=== PATIENT | female | born 1960 | race Caucasian/White ===

== ENCOUNTER 2017-07-28 18:48 | Emergency (ER) | payer MEDICARE, OTHER ==
[~2017-07-28] VITALS: Ht 162.6 cm; Wt 68.0 kg
[2017-07-28 18:52] VITALS: BP 133/85
[2017-07-28] MEDS ORDERED: IBUPROFEN 200 MG TABLET ONE (19:23)
[2017-07-28] MEDS ORDERED: IBUPROFEN 200 MG TABLET PO ONE (19:30)
== END 2017-07-28 20:24 | disposition home or self-care (01) ==
LOC: ED 20:15
DX: M25.561 Pain in right knee (principal)
CPT/HCPCS: 99284

== ENCOUNTER 2017-10-05 06:56 | Emergency (ER) | payer MEDICARE ==
[~2017-10-05] VITALS: Ht 162.6 cm; Wt 66.0 kg
[2017-10-05] MEDS ORDERED: SODIUM CHLORIDE FLUSH 10ML SYR IVF ONE (07:00)
[2017-10-05] MEDS ORDERED: METOCLOPRAMIDE 5 MG/ML, 2ML IVPush ONE (07:00)
[2017-10-05] MEDS ORDERED: SODIUM CHLORIDE 0.9% 1,000ML IVBOLUS ONE (07:00)
[2017-10-05] MEDS ORDERED: DIPHENHYDRAMINE 50 MG/ML, 1ML IVPush ONE (07:00)
[2017-10-05] MEDS ORDERED: DEXAMETHASONE 4 MG/ML, 1ML IVPush ONE (07:00)
[2017-10-05] MEDS ORDERED: TIZA2TAB PO (07:11)
[2017-10-05] MEDS ORDERED: TIZA4CAP PO (07:11)
[2017-10-05] MEDS ORDERED: OXYC-307 PO (07:11)
[2017-10-05] MEDS ORDERED: MIRT15TA4 PO (07:11)
[2017-10-05] MEDS ORDERED: PRESTIQUE PO (07:11)
[2017-10-05] MEDS ORDERED: MORPHINE PO (07:11)
[2017-10-05] MEDS ORDERED: METOCLOPRAMIDE 5 MG/ML, 2ML ONE (07:16)
[2017-10-05] MEDS ORDERED: DIPHENHYDRAMINE 50 MG/ML, 1ML ONE (07:16)
[2017-10-05] MEDS ORDERED: DEXAMETHASONE 4 MG/ML, 5ML ONE (07:16)
[2017-10-05 07:25] LABS: BASOPHILS # (AUTO) 0.04 x10^3/uL (0-0.1); BASOPHILS % (AUTO) 0 % (0-1); EOSINOPHILS # (AUTO) 0.18 x10^3/uL (0-0.4); EOSINOPHILS % (AUTO) 2 % (1-7); LYMPHOCYTES # (AUTO) 2.29 x10^3/uL (1-3.4); LYMPHOCYTES % (AUTO) 21 % (22-44); MD NO; MEAN CORPUSCULAR HEMOGLOBIN 31.6 pg (27.0-34.8); MEAN CORPUSCULAR HGB CONC 33.3 g/dL (32.4-35.8); MEAN CORPUSCULAR VOLUME 94.7 fL (80-100); MEAN PLATELET VOLUME 9.5 fL (7.4-10.4); MONOCYTES # (AUTO) 0.47 x10^3/uL (0.2-0.8); MONOCYTES % (AUTO) 4 % (2-9); NEUTROPHILS # (AUTO) 7.73 x10^3/uL (1.8-6.8); NEUTROPHILS % (AUTO) 72 % (42-75); PLATELET COUNT 204 x10^3/uL (130-400); RED BLOOD COUNT 4.78 x10^6/uL (3.82-5.3); RED CELL DISTRIBUTION WIDTH 12.8 % (9.6-15.2)
[2017-10-05 07:33] LABS: ALBUMIN 3.9 g/dL (3.4-5.0); ANION GAP 9 mmol/L (5-15); CALCIUM 9.4 mg/dL (8.5-10.1); CHLORIDE 109 mmol/L (98-107)
[2017-10-05 09:12] VITALS: BP 116/68
== END 2017-10-05 09:14 | disposition home or self-care (01) ==
LOC: ED 07:55
DX: G43.C0 Periodic headache syndromes in child or adult, not intractable (principal)
CPT/HCPCS: 36415; 70450; 80048; 82040; 85025; 96374; 96375; 99285; J1100; J1200; J2765; J7030

== ENCOUNTER 2017-10-08 22:15 | Emergency (ER) | payer MEDICARE ==
[~2017-10-08] VITALS: Ht 162.6 cm; Wt 65.9 kg
[~2017-10-08 22:15] MED LIST: MIRT15TA4 PO; MORPHINE PO; OXYC-307 PO; PRESTIQUE PO; TIZA2TAB PO; TIZA4CAP PO
[2017-10-08] MEDS ORDERED: PROCHLORPERAZINE 5 MG/ML, 2ML IVPush ONE (22:30)
[2017-10-08] MEDS ORDERED: MAGNESIUM SULFATE PMX 2GM/50ML 50 ML IV ONE (22:30)
[2017-10-08] MEDS ORDERED: SODIUM CHLORIDE 0.9% 1,000ML IVBOLUS ONE (22:30)
[2017-10-08] MEDS ORDERED: PROCHLORPERAZINE 5 MG/ML, 2ML ONE (23:01)
[2017-10-09 00:13] VITALS: BP 151/88
== END 2017-10-09 00:16 | disposition home or self-care (01) ==
LOC: ED 22:55
DX: R51 Headache (principal); Z88.0 Allergy status to penicillin; Z88.1 Allergy status to other antibiotic agents; Z88.8 Allergy status to other drugs, medicaments and biological substances
CPT/HCPCS: 71046; 96365; 96375; 99284; J0780; J3475; J7030

== ENCOUNTER 2017-10-11 13:27 | Inpatient (IN) | payer MEDICARE ==
[~2017-10-11] VITALS: Ht 170.2 cm; Wt 65.0 kg
[2017-10-11] MEDS ORDERED: LORazepam 2 MG/ML, 1ML ONE ×4 (13:52→16:49)
[2017-10-11] MEDS ORDERED: LORazepam 2 MG/ML, 1ML IVPush ONE ×3 (14:00→17:00)
[2017-10-11] MEDS ORDERED: SODIUM CHLORIDE 0.9% 1,000ML IVBOLUS ONE ×2 (14:30→16:30)
[2017-10-11] MEDS ORDERED: LORazepam 2 MG/ML, 1ML IVPush PRN ×2 (15:30→18:00)
[2017-10-11 15:49] LABS: MEAN CORPUSCULAR HEMOGLOBIN 31.7 pg (27.0-34.8); MEAN CORPUSCULAR HGB CONC 33.9 g/dL (32.4-35.8); MEAN CORPUSCULAR VOLUME 93.6 fL (80-100); MEAN PLATELET VOLUME 9.1 fL (7.4-10.4); PLATELET COUNT 241 x10^3/uL (130-400); RED BLOOD COUNT 4.53 x10^6/uL (3.82-5.3); RED CELL DISTRIBUTION WIDTH 13.1 % (9.6-15.2)
[2017-10-11 15:55] LABS: ALANINE AMINOTRANSFERASE 51 U/L (12-78); ALBUMIN 4.3 g/dL (3.4-5.0); ANION GAP 14 mmol/L (5-15); CALCIUM 9.1 mg/dL (8.5-10.1); CHLORIDE 109 mmol/L (98-107)
[2017-10-11 15:58] LABS: ALKALINE PHOSPHATASE 99 U/L (45-117); BILIRUBIN,TOTAL 0.8 mg/dL (0.2-1.0); CREATININE 0.89 mg/dL (0.55-1.02); TOTAL PROTEIN 7.8 g/dL (6.4-8.2)
[2017-10-11 17:06] LABS: MD YES
[2017-10-11 17:08] LABS: <PLATELET ESTIMATE> ADEQUATE; <RBC MORPHOLOGY> NORMAL; BANDS%(MANUAL) 4 % (0-7); LYMPH#(MANUAL) 1.79 x10^3/uL (1-3.4); LYMPHS% (MANUAL) 6 % (22-44); MONOS% (MANUAL) 2 % (2-9); SEGS% (MANUAL) 88 % (42-75)
[2017-10-11 17:09] LABS: <PLT MORPHOLOGY> NORMAL PLT MORPH
[2017-10-11] MEDS ORDERED: NS + 20MEQ KCL 1,000 ML IV SCH (17:52)
[2017-10-11] MEDS ORDERED: ONDANSETRON 2MG/ML, 2ML IVPush PRN (18:00)
[2017-10-11] MEDS ORDERED: DOCUSATE 100 MG CAPSULE PO PRN (18:00)
[2017-10-11] MEDS ORDERED: ENALAPRILAT 1.25 MG/ML, 2ML IVPush PRN (18:00)
[2017-10-11] MEDS ORDERED: BISACODYL 10 MG SUPP PR PRN (18:00)
[2017-10-11] MEDS ORDERED: LABETALOL 5MG/ML, 20ML IVPush PRN (18:00)
[2017-10-11 19:17] VITALS: BP 111/79
[2017-10-11 19:52] VITALS: BP 111/79
[2017-10-11 19:54] VITALS: BP 111/79
[2017-10-11] MEDS ORDERED: LEVETIRACETAM 1,000 MG in SODIUM CHLORIDE 0.9% 100 ML IV ONE (21:30)
[2017-10-11] MEDS: ENOXAPARIN 40 MG/0.4 ML SQ SCH (23:34)
[2017-10-12] MEDS ORDERED: LORazepam 2 MG/ML, 1ML IM ONE (02:00)
[2017-10-12] MEDS ORDERED: HALOPERIDOL 5 MG/ML IM ONE (03:30)
[2017-10-12 03:50] VITALS: BP 129/84
[2017-10-12 05:20] LABS: AMPHETAMINE SCREEN, URINE Negative (Negative); BARBITURATE SCREEN, URINE Negative (Negative); BENZODIAZEPINE SCREEN, URINE Positive (Negative); CANNABINOID SCREEN, URINE Positive (Negative); COCAINE SCREEN, URINE Negative (Negative); METHADONE SCREEN, URINE Negative (Negative); OPIATE SCREEN, URINE Positive (Negative)
[2017-10-12 05:21] LABS: MEAN CORPUSCULAR HGB CONC 33.9 g/dL (32.4-35.8); MEAN CORPUSCULAR VOLUME 94.4 fL (80-100); MEAN PLATELET VOLUME 10.1 fL (7.4-10.4); PLATELET COUNT 217 x10^3/uL (130-400)
[2017-10-12 05:32] LABS: CHLORIDE 113 mmol/L (98-107)
[2017-10-12 05:51] LABS: ALANINE AMINOTRANSFERASE 57 U/L (12-78); ALKALINE PHOSPHATASE 98 U/L (45-117); ANION GAP 17 mmol/L (5-15); BILIRUBIN,TOTAL 1.2 mg/dL (0.2-1.0); CALCIUM 9.1 mg/dL (8.5-10.1); CREATININE 0.68 mg/dL (0.55-1.02); THYROID STIMULATING HORMONE 0.139 mIU/L (0.358-3.740); TOTAL PROTEIN 7.4 g/dL (6.4-8.2)
[2017-10-12 06:28] LABS: MD YES
[2017-10-12 06:37] VITALS: BP 118/79
[2017-10-12 08:42] LABS: <PLATELET ESTIMATE> ADEQUATE; <PLT MORPHOLOGY> NORMAL PLT MORPH; <RBC MORPHOLOGY> NORMAL; BAND#(MANUAL) 1.54 x10^3/uL; BANDS%(MANUAL) 6 % (0-7); BASOS#(MANUAL) 0.51 x10^3/uL (0-0.1); BASOS% (MANUAL) 2 % (0-1); LYMPH#(MANUAL) 2.05 x10^3/uL (1-3.4); LYMPHS% (MANUAL) 8 % (22-44); MONOS#(MANUAL) 1.02 x10^3/uL (0.3-2.7); MONOS% (MANUAL) 4 % (2-9); SEG#(MANUAL) 20.48 x10^3/uL (1.8-6.8); SEGS% (MANUAL) 80 % (42-75)
[2017-10-12] MEDS ORDERED: LEVETIRACETAM 500 MG in SODIUM CHLORIDE 0.9% 100 ML IV SCH (09:00)
[2017-10-12 09:59] LABS: O2 FLOW ROOM AIR L/min
[2017-10-12] MEDS: HYDROcodone/APAP 5/325 TABLET PO PRN ×3 (11:14→22:34)
[2017-10-12 11:16] LABS: MICROSCOPIC AUTO
[2017-10-12] MEDS: POTASSIUM CHLORIDE 40 MEQ in LACTATED RINGERS 1,000 ML IV SCH (15:18)
[2017-10-12] MEDS: VALPROATE SODIUM 500 MG in SODIUM CHLORIDE 0.9% 100 ML IV SCH ×2 (15:54→23:40)
[2017-10-12 16:49] VITALS: BP 131/91
[2017-10-12] MEDS: ENOXAPARIN 40 MG/0.4 ML SQ SCH (17:51)
[2017-10-12] MEDS ORDERED: OXYC-307 PO (17:58)
[2017-10-12] MEDS ORDERED: MORP30TA81 PO (17:59)
[2017-10-12 20:18] VITALS: BP 131/91
[2017-10-13 00:48] VITALS: BP 128/90
[2017-10-13] MEDS ORDERED: METOPROLOL 1 MG/ML, 5ML IVPush ONE (02:00)
[2017-10-13] MEDS ORDERED: DILTIAZEM 5 MG/ML, 5ML IVPush ONE (02:00)
[2017-10-13 05:13] LABS: MEAN CORPUSCULAR HEMOGLOBIN 32.3 pg (27.0-34.8); MEAN CORPUSCULAR HGB CONC 34.1 g/dL (32.4-35.8); MEAN CORPUSCULAR VOLUME 94.7 fL (80-100); MEAN PLATELET VOLUME 10.2 fL (7.4-10.4); PLATELET COUNT 214 x10^3/uL (130-400); RED BLOOD COUNT 4.89 x10^6/uL (3.82-5.3); RED CELL DISTRIBUTION WIDTH 13.2 % (9.6-15.2)
[2017-10-13 05:26] LABS: ALANINE AMINOTRANSFERASE 68 U/L (12-78); ALBUMIN 3.7 g/dL (3.4-5.0); ALKALINE PHOSPHATASE 102 U/L (45-117); BILIRUBIN,TOTAL 1.3 mg/dL (0.2-1.0); CALCIUM 9.4 mg/dL (8.5-10.1); CREATININE 0.69 mg/dL (0.55-1.02); TOTAL PROTEIN 7.3 g/dL (6.4-8.2)
[2017-10-13 05:48] LABS: MD YES
[2017-10-13] MEDS: POTASSIUM CHLORIDE 40 MEQ in LACTATED RINGERS 1,000 ML IV SCH ×2 (06:11→21:11)
[2017-10-13] MEDS: HYDROcodone/APAP 5/325 TABLET PO PRN ×4 (06:11→18:29)
[2017-10-13 06:14] LABS: <PLATELET ESTIMATE> ADEQUATE; <PLT MORPHOLOGY> NORMAL PLT MORPH; <RBC MORPHOLOGY> NORMAL; ANION GAP 10 mmol/L (5-15); CHLORIDE 114 mmol/L (98-107); LYMPH#(MANUAL) 1.91 x10^3/uL (1-3.4); LYMPHS% (MANUAL) 8 % (22-44); MONOS#(MANUAL) 0.48 x10^3/uL (0.3-2.7); MONOS% (MANUAL) 2 % (2-9); REACTIVE LYMPHS # (MANUAL) 0.48 x10^3/uL (0-0); REACTIVE LYMPHS % (MANUAL) 2 % (0-0); SEG#(MANUAL) 21.03 x10^3/uL (1.8-6.8); SEGS% (MANUAL) 88 % (42-75)
[2017-10-13] MEDS: VALPROATE SODIUM 500 MG in SODIUM CHLORIDE 0.9% 100 ML IV SCH (09:00)
[2017-10-13 09:19] VITALS: BP 104/71
[2017-10-13] MEDS: VALPROATE SODIUM 500 MG in DEXTROSE 5% 100 ML IV SCH ×2 (10:00→22:10)
[2017-10-13] MEDS: ACETAMINOPHEN 325 MG TABLET PO PRN (10:45)
[2017-10-13] MEDS ORDERED: SUMATRIPTAN 6MG/0.5ML SQ ONE ×3 (12:00→14:30)
[2017-10-13 12:32] VITALS: BP 95/75
[2017-10-13] MEDS: ENOXAPARIN 40 MG/0.4 ML SQ SCH (18:30)
[2017-10-13 20:00] VITALS: BP 109/74
[2017-10-14] MEDS: HYDROcodone/APAP 5/325 TABLET PO PRN (01:47)
[2017-10-14 02:00] VITALS: BP 121/85
[2017-10-14 03:37] LABS: CLOSTRIDIUM DIFFICILE ANTIGEN NEGATIVE; CLOSTRIDIUM DIFFICILE TOXIN NEGATIVE (Negative)
[2017-10-14] MEDS: POTASSIUM CHLORIDE 40 MEQ in LACTATED RINGERS 1,000 ML IV SCH (05:51)
[2017-10-14 07:44] VITALS: BP 126/85
[2017-10-14] MEDS: VALPROATE SODIUM 500 MG in DEXTROSE 5% 100 ML IV SCH ×2 (10:19→22:22)
[2017-10-14] MEDS: LORazepam 2 MG/ML, 1ML IM PRN (13:01)
[2017-10-14 14:58] LABS: HCT (SEDRATE) 43.3 % (34.6-47.8)
[2017-10-14 15:19] VITALS: BP 123/85
[2017-10-14] MEDS ORDERED: TIZA4TAB PO (15:58)
[2017-10-14] MEDS ORDERED: MORP30TA3 PO (16:08)
[2017-10-14] MEDS ORDERED: LINA290C PO (16:08)
[2017-10-14] MEDS: ENOXAPARIN 40 MG/0.4 ML SQ SCH (17:14)
[2017-10-14] MEDS ORDERED: POTASSIUM ACETATE IV SCH (19:30)
[2017-10-14] MEDS ORDERED: LACTATED RINGERS IV SCH (19:30)
[2017-10-14 20:00] VITALS: BP 132/88
[2017-10-15 01:51] VITALS: BP 127/88
[2017-10-15 05:51] LABS: MEAN CORPUSCULAR HEMOGLOBIN 32.2 pg (27.0-34.8); MEAN CORPUSCULAR VOLUME 94.7 fL (80-100); MEAN PLATELET VOLUME 10.9 fL (7.4-10.4); PLATELET COUNT 200 x10^3/uL (130-400); RED BLOOD COUNT 4.33 x10^6/uL (3.82-5.3); RED CELL DISTRIBUTION WIDTH 13.3 % (9.6-15.2)
[2017-10-15 05:56] LABS: CHLORIDE 113 mmol/L (98-107)
[2017-10-15 06:05] LABS: ALANINE AMINOTRANSFERASE 81 U/L (12-78); ALBUMIN 3.4 g/dL (3.4-5.0); ALKALINE PHOSPHATASE 80 U/L (45-117); ANION GAP 12 mmol/L (5-15); BILIRUBIN,TOTAL 1.1 mg/dL (0.2-1.0); CALCIUM 9.8 mg/dL (8.5-10.1); CREATININE 0.69 mg/dL (0.55-1.02); TOTAL PROTEIN 6.7 g/dL (6.4-8.2)
[2017-10-15 06:23] LABS: MD YES
[2017-10-15 06:25] LABS: BAND#(MANUAL) 0.58 x10^3/uL; BANDS%(MANUAL) 2 % (0-7); LYMPH#(MANUAL) 0.29 x10^3/uL (1-3.4); LYMPHS% (MANUAL) 1 % (22-44); MONOS#(MANUAL) 0.58 x10^3/uL (0.3-2.7); MONOS% (MANUAL) 2 % (2-9); SEG#(MANUAL) 27.65 x10^3/uL (1.8-6.8); SEGS% (MANUAL) 95 % (42-75)
[2017-10-15 06:28] LABS: <RBC MORPHOLOGY> NORMAL
[2017-10-15 06:29] LABS: <PLATELET ESTIMATE> ADEQUATE; <PLT MORPHOLOGY> NORMAL PLT MORPH
[2017-10-15 07:45] VITALS: BP 120/85
[2017-10-15] MEDS ORDERED: MIDAZOLAM 1 MG/ML, 5ML ONE (10:00)
[2017-10-15] MEDS ORDERED: FENTANYL PF 100 MCG/2ML ONE (10:00)
[2017-10-15] MEDS ORDERED: DIPHENHYDRAMINE 50 MG/ML, 1ML ONE (10:42)
[2017-10-15] MEDS ORDERED: LIDOCAINE-MPF 1%, 2ML ONE (10:49)
[2017-10-15] MEDS: VALPROATE SODIUM 500 MG in DEXTROSE 5% 100 ML IV SCH ×2 (12:00→22:13)
[2017-10-15] MEDS ORDERED: OMNIPAQUE 350 MG/ML, 100ML BOTTLE ONE (12:01)
[2017-10-15 12:36] LABS: GLUCOSE, CSF 98 mg/dL (40-80); TOTAL PROTEIN,CSF 28 mg/dL (15-45)
[2017-10-15 15:37] VITALS: BP 120/85
[2017-10-15 15:52] LABS: CHOL/HDL RATIO 5.4; LDL/HDL RATIO 3.1 (0.5-3.0)
[2017-10-15] MEDS: POTASSIUM CHLORIDE 20 MEQ in SODIUM CHLORIDE 0.45% 1,000 ML IV SCH (17:31)
[2017-10-15] MEDS: ENOXAPARIN 40 MG/0.4 ML SQ SCH (17:31)
[2017-10-15] MEDS: CARVEDILOL 6.25 MG TABLET PO SCH (17:31)
[2017-10-15 19:35] VITALS: BP 119/82
[2017-10-15] MEDS: ATORVASTATIN 20 MG TABLET PO SCH (21:50)
[2017-10-16] MEDS: LORazepam 2 MG/ML, 1ML IM PRN (01:01)
[2017-10-16 02:00] VITALS: BP 128/86
[2017-10-16] MEDS ORDERED: ALBUTEROL SULFATE 2.5 MG/3 ML ONE (02:14)
[2017-10-16] MEDS: CARVEDILOL 6.25 MG TABLET PO SCH ×2 (05:21→18:30)
[2017-10-16] MEDS: ASPIRIN 81 MG TABLET EC PO SCH (05:21)
[2017-10-16 06:09] LABS: MEAN CORPUSCULAR HGB CONC 33.5 g/dL (32.4-35.8); MEAN CORPUSCULAR VOLUME 95.4 fL (80-100); MEAN PLATELET VOLUME 10.9 fL (7.4-10.4); PLATELET COUNT 199 x10^3/uL (130-400)
[2017-10-16 06:26] LABS: ANION GAP 10 mmol/L (5-15); CHLORIDE 112 mmol/L (98-107)
[2017-10-16 06:32] LABS: ALANINE AMINOTRANSFERASE 67 U/L (12-78); ALKALINE PHOSPHATASE 70 U/L (45-117); BILIRUBIN,TOTAL 0.7 mg/dL (0.2-1.0); CREATININE 0.75 mg/dL (0.55-1.02)
[2017-10-16 06:47] LABS: MD YES
[2017-10-16 06:49] LABS: BAND#(MANUAL) 0.31 x10^3/uL; BANDS%(MANUAL) 1 % (0-7); LYMPH#(MANUAL) 1.22 x10^3/uL (1-3.4); LYMPHS% (MANUAL) 4 % (22-44); MONOS#(MANUAL) 0.92 x10^3/uL (0.3-2.7); MONOS% (MANUAL) 3 % (2-9); NRBC % (MANUAL) 1 % (0-1); SEG#(MANUAL) 28.15 x10^3/uL (1.8-6.8); SEGS% (MANUAL) 92 % (42-75)
[2017-10-16 06:50] LABS: <PLATELET ESTIMATE> ADEQUATE; <RBC MORPHOLOGY> NORMAL; LARGE PLATELETS 1+
[2017-10-16 07:30] VITALS: BP 123/88
[2017-10-16] MEDS: VALPROATE SODIUM 500 MG in DEXTROSE 5% 100 ML IV SCH ×2 (07:51→21:57)
[2017-10-16] MEDS ORDERED: VALPROATE SODIUM 1,000 MG in DEXTROSE 5% 100 ML IV ONE (08:00)
[2017-10-16] MEDS ORDERED: VALPROATE SODIUM 100 MG/ML, 5ML IVPB ONE (10:00)
[2017-10-16] MEDS ORDERED: ROCURONIUM 10 MG/ML,10ML ONE (10:04)
[2017-10-16] MEDS ORDERED: SUCCINYLCHOLINE 20 MG/ML, 10ML ONE (10:04)
[2017-10-16] MEDS ORDERED: PHENYLEPHRINE 10 MG/ML ONE (10:04)
[2017-10-16] MEDS ORDERED: PROPOFOL 10 MG/ML, 20ML ONE (10:04)
[2017-10-16] MEDS ORDERED: MIDAZOLAM 1 MG/ML, 5ML ONE (10:18)
[2017-10-16] MEDS: METRONIDAZOLE PMX 500MG/100ML 100 ML IV SCH ×3 (10:30→22:46)
[2017-10-16] MEDS ORDERED: GADOBUTROL 10 MMOL/10 ML VIAL ONE (11:28)
[2017-10-16] MEDS ORDERED: PROPOFOL 100 ML IV ONE (12:42)
[2017-10-16] MEDS ORDERED: PROPOFOL 100 ML IV PRN (13:00)
[2017-10-16] MEDS ORDERED: SODIUM CHLORIDE 0.9%, 250ML IVBOLUS ONE (15:30)
[2017-10-16] MEDS: POTASSIUM CHLORIDE 20 MEQ in SODIUM CHLORIDE 0.45% 1,000 ML IV SCH ×2 (15:38→20:06)
[2017-10-16] MEDS: CEFTRIAXONE PMX 2GM/50ML 50 ML IV SCH (15:42)
[2017-10-16] MEDS ORDERED: PHARMACY MAY ADJ FOR RENAL FX MC SCH (16:00)
[2017-10-16] MEDS ORDERED: SENNOSIDES 8.8 MG/5 ML ORAL SOL NG PRN (16:00)
[2017-10-16] MEDS ORDERED: LACTULOSE 20 GM/30 ML UDC NG PRN (16:00)
[2017-10-16] MEDS ORDERED: SENNA/DOCUSATE TABLET NG PRN (16:00)
[2017-10-16] MEDS ORDERED: BISACODYL 10 MG SUPP PR PRN (16:00)
[2017-10-16] MEDS ORDERED: SODIUM CHLORIDE 0.9%, 500ML IV ONE (16:00)
[2017-10-16] MEDS ORDERED: INSULIN LISPRO 100 UNITS/ML, PEN SQ-INSULIN SCH (16:00)
[2017-10-16] MEDS ORDERED: DEXTROSE 50%, 50ML SYRINGE IVPush PRN (16:00)
[2017-10-16] MEDS ORDERED: DEXTROSE 4 GM TAB.CHEW PO PRN (16:00)
[2017-10-16] MEDS ORDERED: GLUCAGON 1 MG IM PRN (16:00)
[2017-10-16] MEDS ORDERED: LIDOCAINE-MPF 1%, 2ML ENDO PRN (16:00)
[2017-10-16] MEDS: FAMOTIDINE 20 MG/2 ML IV SCH (16:16)
[2017-10-16] MEDS: ENOXAPARIN 40 MG/0.4 ML SQ SCH (18:30)
[2017-10-16] MEDS: ALBUTEROL/IPRATROPIUM 2.5MG/0.5MG, 3 ML INLINE SCH ×2 (18:48→22:57)
[2017-10-16 19:17] LABS: MICROSCOPIC INDICATED
[2017-10-16 19:19] LABS: CULTURE INDICATED? NO
[2017-10-16] MEDS: PROPOFOL 100 ML IV PRN (20:08)
[2017-10-16] MEDS: SODIUM CHLORIDE FLUSH 10ML SYR IVF SCH (20:14)
[2017-10-16] MEDS: ATORVASTATIN 20 MG TABLET PO SCH (20:15)
[2017-10-17] MEDS: PROPOFOL 100 ML IV PRN ×3 (02:01→23:57)
[2017-10-17] MEDS: ALBUTEROL/IPRATROPIUM 2.5MG/0.5MG, 3 ML INLINE SCH ×5 (02:54→18:35)
[2017-10-17] MEDS: INSULIN LISPRO 100 UNITS/ML, PEN SQ-INSULIN SCH ×5 (03:00→23:00)
[2017-10-17 04:54] LABS: CHLORIDE 113 mmol/L (98-107)
[2017-10-17 04:57] LABS: MEAN CORPUSCULAR HEMOGLOBIN 31.7 pg (27.0-34.8); MEAN CORPUSCULAR VOLUME 96.1 fL (80-100); MEAN PLATELET VOLUME 10.1 fL (7.4-10.4); PLATELET COUNT 133 x10^3/uL (130-400); RED BLOOD COUNT 3.78 x10^6/uL (3.82-5.3)
[2017-10-17 05:01] LABS: ALANINE AMINOTRANSFERASE 54 U/L (12-78); ALBUMIN 2.6 g/dL (3.4-5.0); ALKALINE PHOSPHATASE 60 U/L (45-117); ANION GAP 10 mmol/L (5-15); BILIRUBIN,TOTAL 0.5 mg/dL (0.2-1.0); CREATININE 0.63 mg/dL (0.55-1.02); TOTAL PROTEIN 5.3 g/dL (6.4-8.2)
[2017-10-17] MEDS: METRONIDAZOLE PMX 500MG/100ML 100 ML IV SCH ×4 (05:26→23:56)
[2017-10-17] MEDS: ASPIRIN 81 MG TABLET EC PO SCH (05:32)
[2017-10-17] MEDS: CARVEDILOL 6.25 MG TABLET PO SCH ×2 (05:32→17:36)
[2017-10-17] MEDS: FAMOTIDINE 20 MG/2 ML IV SCH ×2 (05:32→17:36)
[2017-10-17] MEDS: POTASSIUM CHLORIDE 20 MEQ in SODIUM CHLORIDE 0.45% 1,000 ML IV SCH ×2 (05:34→22:05)
[2017-10-17 05:36] LABS: MD YES
[2017-10-17 05:38] LABS: LYMPH#(MANUAL) 1.28 x10^3/uL (1-3.4); LYMPHS% (MANUAL) 6 % (22-44); MONOS#(MANUAL) 1.93 x10^3/uL (0.3-2.7); MONOS% (MANUAL) 9 % (2-9); SEG#(MANUAL) 18.19 x10^3/uL (1.8-6.8); SEGS% (MANUAL) 85 % (42-75)
[2017-10-17 05:39] LABS: <PLATELET ESTIMATE> ADEQUATE; <PLT MORPHOLOGY> NORMAL PLT MORPH; <RBC MORPHOLOGY> NORMAL
[2017-10-17 05:47] VITALS: BP 105/50
[2017-10-17] MEDS: VALPROATE SODIUM 500 MG in DEXTROSE 5% 100 ML IV SCH ×2 (09:44→22:07)
[2017-10-17] MEDS: SODIUM CHLORIDE FLUSH 10ML SYR IVF SCH ×2 (09:44→20:50)
[2017-10-17] MEDS: CEFTRIAXONE PMX 2GM/50ML 50 ML IV SCH (15:37)
[2017-10-17] MEDS: ENOXAPARIN 40 MG/0.4 ML SQ SCH (17:36)
[2017-10-17] MEDS ORDERED: POTASSIUM CHLORIDE 20 MEQ in SODIUM CHLORIDE 0.45% 1,000 ML IV SCH (18:30)
[2017-10-17] MEDS: ATORVASTATIN 20 MG TABLET PO SCH (20:50)
[2017-10-18] MEDS: ALBUTEROL/IPRATROPIUM 2.5MG/0.5MG, 3 ML INLINE SCH ×3 (02:53→07:00)
[2017-10-18] MEDS: METRONIDAZOLE PMX 500MG/100ML 100 ML IV SCH ×2 (04:23→11:51)
[2017-10-18] MEDS: PROPOFOL 100 ML IV PRN (04:29)
[2017-10-18] MEDS: FAMOTIDINE 20 MG/2 ML IV SCH ×2 (04:30→17:34)
[2017-10-18 04:34] LABS: ALANINE AMINOTRANSFERASE 46 U/L (12-78); ALBUMIN 2.5 g/dL (3.4-5.0); ANION GAP 7 mmol/L (5-15); CALCIUM 7.7 mg/dL (8.5-10.1); CHLORIDE 109 mmol/L (98-107)
[2017-10-18] MEDS: INSULIN LISPRO 100 UNITS/ML, PEN SQ-INSULIN SCH ×4 (04:34→22:51)
[2017-10-18 04:36] LABS: ALKALINE PHOSPHATASE 56 U/L (45-117); BILIRUBIN,TOTAL 0.6 mg/dL (0.2-1.0); TOTAL PROTEIN 5.1 g/dL (6.4-8.2)
[2017-10-18 05:02] LABS: BASOPHILS # (AUTO) 0.01 x10^3/uL (0-0.1); BASOPHILS % (AUTO) 0 % (0-1); EOSINOPHILS # (AUTO) 0.01 x10^3/uL (0-0.4); EOSINOPHILS % (AUTO) 0 % (1-7); LYMPHOCYTES % (AUTO) 9 % (22-44); MD NO; MEAN CORPUSCULAR HGB CONC 33.3 g/dL (32.4-35.8); MEAN CORPUSCULAR VOLUME 95.9 fL (80-100); MEAN PLATELET VOLUME 10.7 fL (7.4-10.4); MONOCYTES % (AUTO) 6 % (2-9); NEUTROPHILS # (AUTO) 11.48 x10^3/uL (1.8-6.8); NEUTROPHILS % (AUTO) 85 % (42-75); PLATELET COUNT 125 x10^3/uL (130-400); RED BLOOD COUNT 3.75 x10^6/uL (3.82-5.3); RED CELL DISTRIBUTION WIDTH 13.5 % (9.6-15.2)
[2017-10-18] MEDS: CARVEDILOL 6.25 MG TABLET PO SCH ×2 (05:14→17:34)
[2017-10-18] MEDS: ASPIRIN 81 MG TABLET EC PO SCH (05:14)
[2017-10-18] MEDS ORDERED: POTASSIUM PHOSPHATE 44 MEQ in SODIUM CHLORIDE 0.9% 500 ML IV ONE (08:00)
[2017-10-18] MEDS: SODIUM CHLORIDE FLUSH 10ML SYR IVF SCH ×2 (09:02→21:30)
[2017-10-18] MEDS: ACETAMINOPHEN 325 MG TABLET PO PRN (11:47)
[2017-10-18] MEDS: VALPROATE SODIUM 500 MG in DEXTROSE 5% 100 ML IV SCH ×2 (11:51→21:29)
[2017-10-18] MEDS ORDERED: ALBUTEROL/IPRATROPIUM 2.5MG/0.5MG, 3 ML NPPB SCH (12:00)
[2017-10-18] MEDS: HYDROcodone/APAP 5/325 TABLET PO PRN ×2 (15:47→21:29)
[2017-10-18] MEDS: CEFTRIAXONE PMX 2GM/50ML 50 ML IV SCH (15:47)
[2017-10-18] MEDS: ENOXAPARIN 40 MG/0.4 ML SQ SCH (17:35)
[2017-10-18] MEDS ORDERED: POTASSIUM CHLORIDE 10% 40 MEQ/30 ML UDC PO ONE (18:00)
[2017-10-18] MEDS: POTASSIUM CHLORIDE 20 MEQ in SODIUM CHLORIDE 0.45% 1,000 ML IV SCH (19:42)
[2017-10-18] MEDS: ATORVASTATIN 20 MG TABLET PO SCH (21:29)
[2017-10-18] MEDS: FENTANYL PF 100 MCG/2ML IVPush PRN (23:46)
[2017-10-18] MEDS: LORazepam 2 MG/ML, 1ML IM PRN (23:47)
[2017-10-19 03:46] LABS: MEAN CORPUSCULAR HEMOGLOBIN 31.7 pg (27.0-34.8); MEAN CORPUSCULAR HGB CONC 33.3 g/dL (32.4-35.8); MEAN CORPUSCULAR VOLUME 95.3 fL (80-100); MEAN PLATELET VOLUME 10.8 fL (7.4-10.4); PLATELET COUNT 140 x10^3/uL (130-400); RED CELL DISTRIBUTION WIDTH 13.5 % (9.6-15.2)
[2017-10-19 03:51] LABS: ANION GAP 7 mmol/L (5-15); CALCIUM 8.2 mg/dL (8.5-10.1); CHLORIDE 108 mmol/L (98-107); CREATININE 0.47 mg/dL (0.55-1.02); TRIGLYCERIDES 107 mg/dL (50-200)
[2017-10-19 03:55] LABS: <PLATELET ESTIMATE> ADEQUATE; BASOPHILS # (AUTO) 0.02 x10^3/uL (0-0.1); BASOPHILS % (AUTO) 0 % (0-1); EOSINOPHILS # (AUTO) 0.16 x10^3/uL (0-0.4); EOSINOPHILS % (AUTO) 1 % (1-7); LARGE PLATELETS 1+; LYMPHOCYTES # (AUTO) 1.24 x10^3/uL (1-3.4); LYMPHOCYTES % (AUTO) 9 % (22-44); MD MORPH REVIEW ONLY; MONOCYTES # (AUTO) 0.92 x10^3/uL (0.2-0.8); MONOCYTES % (AUTO) 6 % (2-9); NEUTROPHILS # (AUTO) 12.21 x10^3/uL (1.8-6.8); NEUTROPHILS % (AUTO) 84 % (42-75)
[2017-10-19] MEDS: HYDROcodone/APAP 5/325 TABLET PO PRN ×4 (04:27→19:36)
[2017-10-19] MEDS: ASPIRIN 81 MG TABLET EC PO SCH (04:27)
[2017-10-19] MEDS: FAMOTIDINE 20 MG/2 ML IV SCH ×2 (04:28→17:39)
[2017-10-19] MEDS: CARVEDILOL 6.25 MG TABLET PO SCH ×3 (04:28→21:31)
[2017-10-19] MEDS ORDERED: ALBUTEROL/IPRATROPIUM 2.5MG/0.5MG, 3 ML ONE (04:33)
[2017-10-19] MEDS: INSULIN LISPRO 100 UNITS/ML, PEN SQ-INSULIN SCH (04:48)
[2017-10-19] MEDS ORDERED: FUROSEMIDE 20 MG/2 ML ONE (05:00)
[2017-10-19] MEDS ORDERED: FUROSEMIDE 20 MG/2 ML IV ONE (05:00)
[2017-10-19] MEDS ORDERED: POTASSIUM CHLORIDE 10% 40 MEQ/30 ML UDC PO ONE (07:30)
[2017-10-19] MEDS: SODIUM CHLORIDE FLUSH 10ML SYR IVF SCH ×2 (08:32→21:31)
[2017-10-19] MEDS: POTASSIUM CHLORIDE 20 MEQ in SODIUM CHLORIDE 0.45% 1,000 ML IV SCH ×2 (08:32→19:36)
[2017-10-19] MEDS: VALPROATE SODIUM 500 MG in DEXTROSE 5% 100 ML IV SCH ×2 (10:43→21:30)
[2017-10-19] MEDS ORDERED: ALBUTEROL/IPRATROPIUM 2.5MG/0.5MG, 3 ML NPPB SCH ×2 (12:00)
[2017-10-19] MEDS: CEFTRIAXONE PMX 2GM/50ML 50 ML IV SCH (15:09)
[2017-10-19] MEDS: ENOXAPARIN 60 MG/0.6 ML SQ SCH (17:39)
[2017-10-19] MEDS: ACETAMINOPHEN 325 MG TABLET PO PRN (18:17)
[2017-10-19] MEDS: ATORVASTATIN 20 MG TABLET PO SCH (21:31)
[2017-10-19] MEDS: POLYETHYLENE GLYCOL 17 GM PACKET PO PRN (21:31)
[2017-10-19] MEDS: FENTANYL PF 100 MCG/2ML IVPush PRN (22:12)
[2017-10-20] MEDS: HYDROcodone/APAP 5/325 TABLET PO PRN ×4 (00:44→21:29)
[2017-10-20] MEDS: FENTANYL PF 100 MCG/2ML IVPush PRN (04:33)
[2017-10-20] MEDS: ENOXAPARIN 60 MG/0.6 ML SQ SCH ×2 (05:56→17:22)
[2017-10-20] MEDS: FAMOTIDINE 20 MG/2 ML IV SCH ×2 (05:56→17:21)
[2017-10-20] MEDS: ASPIRIN 81 MG TABLET EC PO SCH (05:56)
[2017-10-20] MEDS ORDERED: POTASSIUM CHLORIDE 20 MEQ TAB.ER.PRT PO ONE (07:30)
[2017-10-20] MEDS: POTASSIUM CHLORIDE 20 MEQ in SODIUM CHLORIDE 0.45% 1,000 ML IV SCH (08:00)
[2017-10-20] MEDS: CARVEDILOL 6.25 MG TABLET PO SCH ×3 (08:00→21:29)
[2017-10-20] MEDS: SODIUM CHLORIDE FLUSH 10ML SYR IVF SCH ×2 (08:03→21:28)
[2017-10-20] MEDS: VALPROATE SODIUM 500 MG in DEXTROSE 5% 100 ML IV SCH ×2 (12:29→22:57)
[2017-10-20] MEDS: CEFTRIAXONE PMX 2GM/50ML 50 ML IV SCH ×2 (15:04→17:21)
[2017-10-20] MEDS: KETOROLAC 30 MG/1 ML IM PRN (15:04)
[2017-10-20] MEDS: ATORVASTATIN 20 MG TABLET PO SCH (21:29)
[2017-10-21] MEDS: LORazepam 2 MG/ML, 1ML IM PRN (01:31)
[2017-10-21 04:43] LABS: MEAN CORPUSCULAR HEMOGLOBIN 31.7 pg (27.0-34.8); MEAN CORPUSCULAR VOLUME 96.2 fL (80-100); MEAN PLATELET VOLUME 10.3 fL (7.4-10.4); PLATELET COUNT 216 x10^3/uL (130-400); RED BLOOD COUNT 4.44 x10^6/uL (3.82-5.3); RED CELL DISTRIBUTION WIDTH 13.5 % (9.6-15.2)
[2017-10-21 04:52] LABS: ANION GAP 6 mmol/L (5-15); CHLORIDE 104 mmol/L (98-107)
[2017-10-21 05:48] LABS: BASOPHILS # (AUTO) 0.03 x10^3/uL (0-0.1); BASOPHILS % (AUTO) 0 % (0-1); EOSINOPHILS # (AUTO) 0.55 x10^3/uL (0-0.4); EOSINOPHILS % (AUTO) 3 % (1-7); LYMPHOCYTES # (AUTO) 1.87 x10^3/uL (1-3.4); LYMPHOCYTES % (AUTO) 11 % (22-44); MD SCAN; MONOCYTES # (AUTO) 1.55 x10^3/uL (0.2-0.8); MONOCYTES % (AUTO) 9 % (2-9); NEUTROPHILS # (AUTO) 12.73 x10^3/uL (1.8-6.8); NEUTROPHILS % (AUTO) 76 % (42-75)
[2017-10-21] MEDS: ENOXAPARIN 60 MG/0.6 ML SQ SCH ×2 (06:00→18:04)
[2017-10-21] MEDS: FAMOTIDINE 20 MG/2 ML IV SCH ×2 (06:00→18:04)
[2017-10-21] MEDS: ASPIRIN 81 MG TABLET EC PO SCH (06:00)
[2017-10-21] MEDS: SODIUM CHLORIDE FLUSH 10ML SYR IVF SCH ×2 (09:00→21:01)
[2017-10-21] MEDS: CARVEDILOL 6.25 MG TABLET PO SCH ×3 (09:00→21:01)
[2017-10-21] MEDS: VALPROATE SODIUM 500 MG in DEXTROSE 5% 100 ML IV SCH ×2 (10:25→22:23)
[2017-10-21] MEDS: KETOROLAC 30 MG/1 ML IM PRN ×2 (11:58→21:01)
[2017-10-21] MEDS: CEFTRIAXONE PMX 2GM/50ML 50 ML IV SCH (15:58)
[2017-10-21] MEDS: ATORVASTATIN 20 MG TABLET PO SCH (21:01)
[2017-10-21] MEDS: POLYETHYLENE GLYCOL 17 GM PACKET PO PRN (23:15)
[2017-10-22] MEDS: FAMOTIDINE 20 MG/2 ML IV SCH ×2 (05:54→16:59)
[2017-10-22] MEDS: ENOXAPARIN 60 MG/0.6 ML SQ SCH ×2 (05:54→17:06)
[2017-10-22] MEDS: ASPIRIN 81 MG TABLET EC PO SCH (05:54)
[2017-10-22] MEDS: KETOROLAC 30 MG/1 ML IM PRN (05:54)
[2017-10-22] MEDS: CARVEDILOL 6.25 MG TABLET PO SCH ×3 (09:18→20:29)
[2017-10-22] MEDS: SODIUM CHLORIDE FLUSH 10ML SYR IVF SCH ×2 (09:19→20:30)
[2017-10-22] MEDS: VALPROATE SODIUM 500 MG in DEXTROSE 5% 100 ML IV SCH (13:44)
[2017-10-22] MEDS: CEFTRIAXONE PMX 2GM/50ML 50 ML IV SCH (16:26)
[2017-10-22 19:00] VITALS: BP 113/81
[2017-10-22] MEDS: ATORVASTATIN 20 MG TABLET PO SCH (20:30)
[2017-10-22] MEDS: ACETAMINOPHEN 325 MG TABLET PO PRN (20:58)
[2017-10-23 01:36] VITALS: BP 115/87
[2017-10-23] MEDS: VALPROATE SODIUM 500 MG in DEXTROSE 5% 100 ML IV SCH ×2 (02:10→13:27)
[2017-10-23] MEDS: ACETAMINOPHEN 325 MG TABLET PO PRN (04:16)
[2017-10-23] MEDS: FAMOTIDINE 20 MG/2 ML IV SCH ×2 (05:53→17:42)
[2017-10-23] MEDS: ASPIRIN 81 MG TABLET EC PO SCH (05:53)
[2017-10-23] MEDS: ENOXAPARIN 60 MG/0.6 ML SQ SCH ×2 (05:54→17:42)
[2017-10-23 06:06] LABS: MEAN CORPUSCULAR HEMOGLOBIN 31.7 pg (27.0-34.8); MEAN CORPUSCULAR HGB CONC 33.2 g/dL (32.4-35.8); MEAN CORPUSCULAR VOLUME 95.6 fL (80-100); MEAN PLATELET VOLUME 9.8 fL (7.4-10.4); PLATELET COUNT 260 x10^3/uL (130-400); RED BLOOD COUNT 4.56 x10^6/uL (3.82-5.3); RED CELL DISTRIBUTION WIDTH 13.5 % (9.6-15.2)
[2017-10-23 06:09] LABS: ALBUMIN 2.7 g/dL (3.4-5.0); CALCIUM 8.9 mg/dL (8.5-10.1); CHLORIDE 105 mmol/L (98-107)
[2017-10-23 06:15] LABS: ALANINE AMINOTRANSFERASE 130 U/L (12-78); ALKALINE PHOSPHATASE 80 U/L (45-117); ANION GAP 7 mmol/L (5-15); BILIRUBIN,TOTAL 0.5 mg/dL (0.2-1.0); TOTAL PROTEIN 6.2 g/dL (6.4-8.2)
[2017-10-23 06:30] LABS: BASOPHILS # (AUTO) 0.07 x10^3/uL (0-0.1); BASOPHILS % (AUTO) 1 % (0-1); EOSINOPHILS # (AUTO) 0.17 x10^3/uL (0-0.4); EOSINOPHILS % (AUTO) 1 % (1-7); LYMPHOCYTES # (AUTO) 2.04 x10^3/uL (1-3.4); LYMPHOCYTES % (AUTO) 14 % (22-44); MD SCAN; MONOCYTES # (AUTO) 1.77 x10^3/uL (0.2-0.8); MONOCYTES % (AUTO) 12 % (2-9); NEUTROPHILS # (AUTO) 10.76 x10^3/uL (1.8-6.8); NEUTROPHILS % (AUTO) 73 % (42-75)
[2017-10-23 07:53] VITALS: BP 122/81
[2017-10-23] MEDS: CARVEDILOL 6.25 MG TABLET PO SCH ×3 (10:09→21:17)
[2017-10-23] MEDS: SODIUM CHLORIDE FLUSH 10ML SYR IVF SCH ×2 (10:09→21:17)
[2017-10-23] MEDS ORDERED: ALBUTEROL/IPRATROPIUM 2.5MG/0.5MG, 3 ML NPPB PRN (12:00)
[2017-10-23] MEDS: KETOROLAC 30 MG/1 ML IM PRN ×2 (12:39→21:18)
[2017-10-23 14:39] VITALS: BP 107/72
[2017-10-23] MEDS: CEFTRIAXONE PMX 2GM/50ML 50 ML IV SCH (17:41)
[2017-10-23] MEDS: ATORVASTATIN 20 MG TABLET PO SCH (21:17)
[2017-10-23 21:37] VITALS: BP 120/84
[2017-10-24] MEDS: HYDROcodone/APAP 5/325 TABLET PO PRN ×3 (00:18→22:37)
[2017-10-24] MEDS: VALPROATE SODIUM 500 MG in DEXTROSE 5% 100 ML IV SCH ×2 (02:48→16:22)
[2017-10-24 03:53] VITALS: BP 111/78
[2017-10-24] MEDS: ENOXAPARIN 60 MG/0.6 ML SQ SCH ×2 (05:38→18:15)
[2017-10-24] MEDS: ASPIRIN 81 MG TABLET EC PO SCH (05:38)
[2017-10-24] MEDS: FAMOTIDINE 20 MG/2 ML IV SCH ×2 (05:38→18:14)
[2017-10-24] MEDS: KETOROLAC 30 MG/1 ML IM PRN ×3 (05:38→19:55)
[2017-10-24 06:10] LABS: ANION GAP 8 mmol/L (5-15); CALCIUM 9.2 mg/dL (8.5-10.1); CHLORIDE 107 mmol/L (98-107); CREATININE 0.59 mg/dL (0.55-1.02); MEAN CORPUSCULAR HGB CONC 33.3 g/dL (32.4-35.8); MEAN PLATELET VOLUME 11.1 fL (7.4-10.4); PLATELET COUNT 273 x10^3/uL (130-400); RED BLOOD COUNT 4.21 x10^6/uL (3.82-5.3); RED CELL DISTRIBUTION WIDTH 13.8 % (9.6-15.2)
[2017-10-24 06:37] LABS: BASOPHILS # (AUTO) 0.04 x10^3/uL (0-0.1); BASOPHILS % (AUTO) 0 % (0-1); EOSINOPHILS # (AUTO) 0.09 x10^3/uL (0-0.4); EOSINOPHILS % (AUTO) 1 % (1-7); LYMPHOCYTES # (AUTO) 2.09 x10^3/uL (1-3.4); LYMPHOCYTES % (AUTO) 15 % (22-44); MD SCAN; MONOCYTES # (AUTO) 1.62 x10^3/uL (0.2-0.8); MONOCYTES % (AUTO) 12 % (2-9); NEUTROPHILS # (AUTO) 9.93 x10^3/uL (1.8-6.8); NEUTROPHILS % (AUTO) 72 % (42-75)
[2017-10-24 07:02] VITALS: BP 106/67
[2017-10-24] MEDS: CARVEDILOL 6.25 MG TABLET PO SCH ×3 (08:52→22:38)
[2017-10-24] MEDS: SODIUM CHLORIDE FLUSH 10ML SYR IVF SCH ×2 (08:53→22:37)
[2017-10-24 12:41] VITALS: BP 115/70
[2017-10-24 13:13] VITALS: BP 114/58
[2017-10-24] MEDS: CEFTRIAXONE PMX 2GM/50ML 50 ML IV SCH (18:14)
[2017-10-24 19:04] VITALS: BP 114/74
[2017-10-24] MEDS: ATORVASTATIN 20 MG TABLET PO SCH (21:00)
[2017-10-24 22:36] VITALS: BP 109/65
[2017-10-25 00:25] VITALS: BP 122/75
[2017-10-25] MEDS: VALPROATE SODIUM 500 MG in DEXTROSE 5% 100 ML IV SCH (02:40)
[2017-10-25] MEDS: KETOROLAC 30 MG/1 ML IM PRN (03:56)
[2017-10-25] MEDS: FAMOTIDINE 20 MG/2 ML IV SCH ×2 (05:47→17:37)
[2017-10-25] MEDS: ASPIRIN 81 MG TABLET EC PO SCH (05:48)
[2017-10-25] MEDS: ENOXAPARIN 60 MG/0.6 ML SQ SCH (05:48)
[2017-10-25 06:21] LABS: MEAN CORPUSCULAR HEMOGLOBIN 32.1 pg (27.0-34.8); MEAN CORPUSCULAR HGB CONC 32.8 g/dL (32.4-35.8); MEAN CORPUSCULAR VOLUME 97.8 fL (80-100); MEAN PLATELET VOLUME 10.5 fL (7.4-10.4); PLATELET COUNT 261 x10^3/uL (130-400); RED BLOOD COUNT 3.96 x10^6/uL (3.82-5.3); RED CELL DISTRIBUTION WIDTH 13.8 % (9.6-15.2)
[2017-10-25 06:32] LABS: ANION GAP 7 mmol/L (5-15); CALCIUM 8.8 mg/dL (8.5-10.1); CHLORIDE 107 mmol/L (98-107)
[2017-10-25 06:34] LABS: CREATININE 0.69 mg/dL (0.55-1.02)
[2017-10-25] MEDS: HYDROcodone/APAP 5/325 TABLET PO PRN ×2 (06:45→17:37)
[2017-10-25 06:50] LABS: MD YES
[2017-10-25 06:52] LABS: BAND#(MANUAL) 0.71 x10^3/uL; BANDS%(MANUAL) 5 % (0-7); BASOS#(MANUAL) 0.14 x10^3/uL (0-0.1); BASOS% (MANUAL) 1 % (0-1); LYMPH#(MANUAL) 1.85 x10^3/uL (1-3.4); LYMPHS% (MANUAL) 13 % (22-44); METAMYELOCYTES# (MANUAL) 0.28 x10^3/uL (0-0); METAMYELOCYTES% (MANUAL) 2 % (0-1); MONOS% (MANUAL) 11 % (2-9); MYELOCYTES# (MANUAL) 0.85 x10^3/uL (0-0); MYELOCYTES% (MANUAL) 6 % (0-0); SEGS% (MANUAL) 62 % (42-75)
[2017-10-25 07:01] LABS: <PLATELET ESTIMATE> ADEQUATE; <PLT MORPHOLOGY> NORMAL PLT MORPH; <RBC MORPHOLOGY> NORMAL
[2017-10-25 07:20] VITALS: BP 123/65
[2017-10-25] MEDS ORDERED: VALPROIC ACID 250 MG CAPSULE PO SCH (08:00)
[2017-10-25 08:14] LABS: MONOS#(MANUAL) 1.56 x10^3/uL (0.3-2.7); SEG#(MANUAL) 8.95 x10^3/uL (1.8-6.8)
[2017-10-25] MEDS ORDERED: APIXABAN 5 MG TABLET PO SCH (09:00)
[2017-10-25] MEDS: CARVEDILOL 6.25 MG TABLET PO SCH ×2 (09:47→17:37)
[2017-10-25] MEDS: SODIUM CHLORIDE FLUSH 10ML SYR IVF SCH (09:48)
[2017-10-25 12:15] VITALS: BP 120/74
[2017-10-25] MEDS ORDERED: ASPI-621 PO (14:43)
[2017-10-25] MEDS ORDERED: APIX5TAB PO (14:43)
[2017-10-25] MEDS ORDERED: VALP250C PO (14:43)
[2017-10-25] MEDS ORDERED: ATOR20TA9 PO (14:43)
[2017-10-25] MEDS ORDERED: CARV6.2512 PO (14:43)
[2017-10-25] MEDS ORDERED: ACET325T14 PO (14:47)
[2017-10-30] MEDS ORDERED: GABA-826 PO (19:38)
[2017-10-30] MEDS ORDERED: OXYC-307 PO (19:43)
[2017-10-30] MEDS ORDERED: ACET325C5 PO (19:43)
== END 2017-10-25 18:47 | DRG 871 ==
LOC: ED 17:16 → EDIP 17:17 → ED 17:50 → 4EST 18:52 → 4WST 22:42 → CCU 10-16 11:11 → 4WST 10-22 10:05
PROVIDERS: ADMIT Hospitalist; ATTEND Hospitalist
PROC: 009U3ZX Drainage of Spinal Canal, Percutaneous Approach, Diagnostic (ICD-10-PCS; 2017-10-15)
PROC: B01B1ZZ Fluoroscopy of Spinal Cord using Low Osmolar Contrast (ICD-10-PCS; 2017-10-15)
PROC: 0T9B70Z Drainage of Bladder with Drainage Device, Via Natural or Artificial Opening (ICD-10-PCS; 2017-10-16)
PROC: 0BH17EZ Insertion of Endotracheal Airway into Trachea, Via Natural or Artificial Opening (ICD-10-PCS; principal; 2017-10-17)
PROC: 5A1945Z Respiratory Ventilation, 24-96 Consecutive Hours (ICD-10-PCS; 2017-10-17)
DX: A41.9 Sepsis, unspecified organism (principal); J69.0 Pneumonitis due to inhalation of food and vomit; E43 Unspecified severe protein-calorie malnutrition; G93.41 Metabolic encephalopathy; J15.211 Pneumonia due to Methicillin susceptible Staphylococcus aureus; J15.6 Pneumonia due to other Gram-negative bacteria; J96.00 Acute respiratory failure, unspecified whether with hypoxia or hypercapnia; E87.2 Acidosis; E87.0 Hyperosmolality and hypernatremia; G40.209 Localization-related (focal) (partial) symptomatic epilepsy and epileptic syndromes with complex partial seizures, not intractable, without status epilepticus; I51.81 Takotsubo syndrome; Z99.11 Dependence on respirator [ventilator] status; J90 Pleural effusion, not elsewhere classified; E87.6 Hypokalemia; G43.909 Migraine, unspecified, not intractable, without status migrainosus; G89.29 Other chronic pain; I25.5 Ischemic cardiomyopathy; H54.7 Unspecified visual loss; N28.1 Cyst of kidney, acquired; R73.9 Hyperglycemia, unspecified; E05.90 Thyrotoxicosis, unspecified without thyrotoxic crisis or storm; Z68.22 Body mass index [BMI] 22.0-22.9, adult; Z79.891 Long term (current) use of opiate analgesic; Z87.820 Personal history of traumatic brain injury; Z87.891 Personal history of nicotine dependence; Z88.0 Allergy status to penicillin; Z90.49 Acquired absence of other specified parts of digestive tract; Z88.8 Allergy status to other drugs, medicaments and biological substances
CPT/HCPCS: 36415; 36600; 62270; 70450; 70544; 70548; 70551; 70553; 71045; 71275; 74177; 74230; 76700; 80048; 80053; 80061; 80164; 80307; 81001; 82140; 82533; 82803; 82945; 82962; 83605; 83735; 84100; 84145; 84157; 84439; 84443; 84478; 85025; 85379; 85651; 86141; 87040; 87070; 87077; 87081; 87116; 87186; 87205; 87206; 87252; 87255; 87324; 89051; 93005; 93306; 94002; 94003; 94150; 94640; 95819; 96361; 96374; 96375; 99156; 99157; A9585; J0696; J1650; J1885; J1953; J2250; J2405; J2704; J2930; J3010; J3480; J3490; J7620; Q9967; 92523-GN; C8924; J0330; J1200; J1630; J1815; J1940; J2060; J2370; J3030; J7030; J7040; J7120; S0028

== ENCOUNTER 2018-01-07 14:35 | Emergency (ER) | payer MEDICARE ==
[~2018-01-07] VITALS: Ht 162.6 cm; Wt 59.6 kg
[~2018-01-07 14:35] MED LIST changes: +ACET325C5 PO; +ACET325T14 PO; +APIX5TAB PO; +ASPI-621 PO; +ATOR20TA9 PO; +CARV6.2512 PO; +GABA-826 PO; +LINA290C PO; +MORP15TA3 PO; +MORP30TA3 PO; +MORP30TA81 PO; +TIZA4TAB PO; +VALP250C PO
[2018-01-07 15:42] LABS: ALBUMIN 3.2 g/dL (3.4-5.0); ANION GAP 8 mmol/L (5-15); CALCIUM 8.7 mg/dL (8.5-10.1); CHLORIDE 109 mmol/L (98-107); CREATININE 0.59 mg/dL (0.55-1.02)
[2018-01-07 16:28] LABS: MEAN CORPUSCULAR HEMOGLOBIN 32.1 pg (27.0-34.8); MEAN CORPUSCULAR HGB CONC 33.4 g/dL (32.4-35.8); MEAN CORPUSCULAR VOLUME 96.1 fL (80-100); RED BLOOD COUNT 3.65 x10^6/uL (3.82-5.3)
[2018-01-07 16:41] VITALS: BP 129/78
[2018-01-07 17:05] LABS: MD YES
[2018-01-07 17:20] LABS: MEAN PLATELET VOLUME 9.7 fL (7.4-10.4); PLATELET COUNT 82 x10^3/uL (130-400)
[2018-01-07 17:23] LABS: BAND#(MANUAL) 0.08 x10^3/uL; BANDS%(MANUAL) 1 % (0-7); EOS#(MANUAL) 0.32 x10^3/uL (0.0-0.4); EOS% (MANUAL) 4 % (1-7); LYMPHS% (MANUAL) 16 % (22-44); MONOS#(MANUAL) 0.41 x10^3/uL (0.3-2.7); MONOS% (MANUAL) 5 % (2-9); SEG#(MANUAL) 5.99 x10^3/uL (1.8-6.8); SEGS% (MANUAL) 74 % (42-75)
[2018-01-07 17:24] LABS: <RBC MORPHOLOGY> NORMAL
[2018-01-07 17:25] LABS: <PLATELET ESTIMATE> DECREASED; <PLT MORPHOLOGY> NORMAL PLT MORPH
== END 2018-01-07 16:43 | disposition home or self-care (01) ==
LOC: ED 16:40
DX: B86 Scabies (principal); Z86.73 Personal history of transient ischemic attack (TIA), and cerebral infarction without residual deficits
CPT/HCPCS: 36415; 80048; 82040; 85025; 99284

== ENCOUNTER 2019-04-23 12:29 | Outpatient (CLI) | payer MEDICARE ==
[~2019-04-23 12:29] MED LIST changes: -ACET325C5 PO; +ACET325C6 PO; -ASPI-621 PO; +ASPI81TA45 PO; +ATOR20TA37 PO; -ATOR20TA9 PO; +MIRT-34 PO; -MIRT15TA4 PO; +MORP-29 PO; +MORP-30 PO; -MORP15TA3 PO; -MORP30TA3 PO; -TIZA2TAB PO; +TIZA2TAB2 PO; -TIZA4TAB PO; +TIZA4TAB2 PO
[2019-04-23] MEDS ORDERED: MORP30TA81 PO (13:05)
[2019-04-23] MEDS ORDERED: GABA-827 PO (13:05)
[2019-04-23] MEDS ORDERED: CARV12.52 PO (13:05)
[2019-04-23] MEDS ORDERED: POLY17PO5 PO (13:05)
[2019-04-23] MEDS ORDERED: APIX5TAB PO (13:05)
[2019-04-23] MEDS ORDERED: ATOR40TA78 PO (13:05)
[2019-04-23] MEDS ORDERED: SERT50TA28 PO (13:05)
[2019-04-23] MEDS ORDERED: FAMO-79 PO (13:12)
== END 2019-04-23 23:59 | disposition home or self-care (01) ==
LOC: STAR 12:29
PROVIDERS: ATTEND Internal Medicine
DX: Z01.818 Encounter for other preprocedural examination (principal); R12 Heartburn; I44.5 Left posterior fascicular block; R94.39 Abnormal result of other cardiovascular function study
CPT/HCPCS: 93005

== ENCOUNTER 2019-04-29 09:12 | Day surgery (SDC) | payer MEDICARE ==
[~2019-04-29] VITALS: Ht 162.6 cm; Wt 70.7 kg
[~2019-04-29 09:12] MED LIST changes: +ATOR40TA78 PO; +CARV12.52 PO; +FAMO-79 PO; +GABA-827 PO; +POLY17PO5 PO; +SERT50TA28 PO
[2019-04-29] MEDS ORDERED: ONDANSETRON 2MG/ML, 2ML IV PRN (09:30)
[2019-04-29] MEDS ORDERED: ACETAMINOPHEN 325 MG TABLET PO PRN (09:30)
[2019-04-29] MEDS ORDERED: KETOROLAC 30 MG/1 ML IV PRN (09:30)
[2019-04-29] MEDS ORDERED: FENTANYL PF 100 MCG/2ML IV PRN (09:30)
[2019-04-29] MEDS ORDERED: LACTATED RINGERS 1,000 ML IV SCH (09:35)
[2019-04-29 09:37] VITALS: BP 117/78
[2019-04-29] MEDS ORDERED: PROPOFOL 10 MG/ML, 20ML ONE (09:57)
== END 2019-04-29 12:05 | disposition home or self-care (01) ==
LOC: OUT 09:12
PROVIDERS: ATTEND Internal Medicine
DX: K21.9 Gastro-esophageal reflux disease without esophagitis (principal); R19.5 Other fecal abnormalities; K31.9 Disease of stomach and duodenum, unspecified; K64.8 Other hemorrhoids; K63.89 Other specified diseases of intestine; I25.2 Old myocardial infarction; Z79.01 Long term (current) use of anticoagulants; Z79.891 Long term (current) use of opiate analgesic; Z79.899 Other long term (current) drug therapy; Z86.010 Personal history of colon polyps; Z86.73 Personal history of transient ischemic attack (TIA), and cerebral infarction without residual deficits; Z88.0 Allergy status to penicillin; Z88.1 Allergy status to other antibiotic agents; Z88.8 Allergy status to other drugs, medicaments and biological substances; Z90.49 Acquired absence of other specified parts of digestive tract; Z90.710 Acquired absence of both cervix and uterus; Z98.890 Other specified postprocedural states
CPT/HCPCS: 43239; 45378; 88305; J2704; J7120

== ENCOUNTER 2019-12-21 00:19 | Emergency (ER) | payer MEDICARE ==
[~2019-12-21] VITALS: Ht 167.6 cm; Wt 75.0 kg
[~2019-12-21 00:19] MED LIST changes: -TIZA2TAB2 PO; +TIZA2TAB4 PO
[2019-12-21 00:23] VITALS: BP 154/89
[2019-12-21] MEDS ORDERED: ONDANSETRON 2MG/ML, 2ML IVPush ONE (00:30)
[2019-12-21 00:48] LABS: BASOPHILS # (AUTO) 0.04 x10^3/uL (0-0.1); BASOPHILS % (AUTO) 0 % (0-1); EOSINOPHILS # (AUTO) 0.25 x10^3/uL (0-0.4); EOSINOPHILS % (AUTO) 2 % (1-7); LYMPHOCYTES # (AUTO) 2.34 x10^3/uL (1-3.4); LYMPHOCYTES % (AUTO) 14 % (22-44); MD NO; MEAN CORPUSCULAR HEMOGLOBIN 31.7 pg (27.0-34.8); MEAN CORPUSCULAR HGB CONC 33.3 g/dL (32.4-35.8); MEAN CORPUSCULAR VOLUME 95.2 fL (80-100); MEAN PLATELET VOLUME 9.3 fL (7.4-10.4); MONOCYTES # (AUTO) 0.55 x10^3/uL (0.2-0.8); MONOCYTES % (AUTO) 3 % (2-9); NEUTROPHILS # (AUTO) 13.72 x10^3/uL (1.8-6.8); NEUTROPHILS % (AUTO) 81 % (42-75); PLATELET COUNT 176 x10^3/uL (130-400); RED BLOOD COUNT 4.56 x10^6/uL (3.82-5.3); RED CELL DISTRIBUTION WIDTH 14.1 % (9.6-15.2)
[2019-12-21] MEDS ORDERED: MORPHINE SULFATE 4 MG/ML, 1ML ONE ×2 (00:50→01:51)
[2019-12-21] MEDS ORDERED: ONDANSETRON 2MG/ML, 2ML ONE (00:50)
[2019-12-21] MEDS: MORPHINE SULFATE 4 MG/ML, 1ML IVPush PRN ×2 (00:56→01:52)
[2019-12-21 00:58] LABS: ALANINE AMINOTRANSFERASE 43 U/L (12-78); ALBUMIN 3.6 g/dL (3.4-5.0); ANION GAP 5 mmol/L (5-15); CALCIUM 8.8 mg/dL (8.5-10.1); CHLORIDE 108 mmol/L (98-107); CREATININE 1.06 mg/dL (0.55-1.02)
[2019-12-21 01:02] LABS: ALKALINE PHOSPHATASE 112 U/L (45-117); BILIRUBIN,TOTAL 0.7 mg/dL (0.2-1.0); TOTAL PROTEIN 6.9 g/dL (6.4-8.2)
[2019-12-21] MEDS ORDERED: OMNIPAQUE 350 MG/ML, 100ML BOTTLE ONE (01:39)
[2019-12-21 02:09] LABS: MICROSCOPIC INDICATED
[2019-12-21] MEDS ORDERED: KETOROLAC 30 MG/1 ML IVPush ONE (03:00)
[2019-12-21] MEDS ORDERED: KETOROLAC 30 MG/1 ML ONE (03:18)
[2019-12-22] MEDS ORDERED: OXYC5CAP2 PO (14:57)
== END 2019-12-21 04:05 | disposition home or self-care (01) ==
LOC: ED 04:03
DX: N13.2 Hydronephrosis with renal and ureteral calculous obstruction (principal); R10.31 Right lower quadrant pain; R94.31 Abnormal electrocardiogram [ECG] [EKG]; M54.5 Low back pain; I10 Essential (primary) hypertension; I25.2 Old myocardial infarction; Z86.73 Personal history of transient ischemic attack (TIA), and cerebral infarction without residual deficits
CPT/HCPCS: 36415; 74177; 80053; 81001; 83690; 84484; 85025; 87086; 93005; 96374; 96375; 96376; 99285; J1885; J2270; J2405; Q9967

== ENCOUNTER 2019-12-21 11:08 | Observation (INO) | payer MEDICARE ==
[~2019-12-21] VITALS: Ht 162.6 cm; Wt 72.0 kg
[2019-12-21] MEDS ORDERED: LACTATED RINGERS 1,000 ML IV SCH (11:34)
[2019-12-21] MEDS ORDERED: CHLORHEXIDINE 15 ML UDC MM STA (11:34)
[2019-12-21 11:36] VITALS: BP 95/63
[2019-12-21] MEDS ORDERED: MIDAZOLAM 1 MG/ML, 2ML ONE (13:03)
[2019-12-21] MEDS ORDERED: FENTANYL PF 250 MCG/5ML ONE (13:04)
[2019-12-21] MEDS ORDERED: BUPIVACAINE/PF-EPI 0.5% 1:200K ONE (13:15)
[2019-12-21] MEDS ORDERED: ONDANSETRON 2MG/ML, 2ML ONE (13:20)
[2019-12-21] MEDS ORDERED: CEFAZOLIN 1,000 MG ONE (13:20)
[2019-12-21] MEDS ORDERED: PROPOFOL 10 MG/ML, 20ML ONE (13:20)
[2019-12-21] MEDS ORDERED: SUCCINYLCHOLINE 20 MG/ML, 10ML ONE (13:20)
[2019-12-21] MEDS ORDERED: DEXAMETHASONE 4 MG/ML, 1ML ONE (13:20)
[2019-12-21] MEDS: FENTANYL PF 100 MCG/2ML IV PRN ×4 (14:22→15:10)
[2019-12-21] MEDS ORDERED: OXYcodone 5 MG/5 ML ORAL.SOL UDC ONE (14:24)
[2019-12-21] MEDS ORDERED: FENTANYL PF 100 MCG/2ML ONE ×2 (14:24→15:00)
[2019-12-21] MEDS ORDERED: hydrALAzine 20 MG/ML, 1ML IV PRN (14:30)
[2019-12-21] MEDS ORDERED: MIDAZOLAM 1 MG/ML, 2ML IV PRN (14:30)
[2019-12-21] MEDS ORDERED: DIPHENHYDRAMINE 50 MG/ML, 1ML IVPush PRN (14:30)
[2019-12-21] MEDS ORDERED: ALBUTEROL SULFATE 2.5 MG/3 ML NPPB PRN (14:30)
[2019-12-21] MEDS ORDERED: PROMETHAZINE 25 MG/ML, 1ML IVPush PRN (14:30)
[2019-12-21] MEDS ORDERED: LABETALOL 5MG/ML, 20ML IV PRN (14:30)
[2019-12-21] MEDS ORDERED: ACETAMINOPHEN 325 MG TABLET PO PRN (14:30)
[2019-12-21] MEDS ORDERED: PROMETHAZINE 12.5 MG SUPP PR PRN (14:30)
[2019-12-21] MEDS ORDERED: DIAZEPAM 5 MG/ML, 2ML IVPush PRN (14:30)
[2019-12-21] MEDS ORDERED: ONDANSETRON 2MG/ML, 2ML IVPush PRN (14:30)
[2019-12-21] MEDS ORDERED: MEPERIDINE/PF 25MG/0.5ML IVPush PRN (14:30)
[2019-12-21] MEDS ORDERED: EPHEDRINE 50 MG/ML, 1ML IVPush PRN (14:30)
[2019-12-21] MEDS: OXYcodone 5 MG/5 ML ORAL.SOL UDC PO PRN (14:39)
[2019-12-21] MEDS ORDERED: HYDROmorphone 2 MG/ML, 1ML ONE (14:42)
[2019-12-21] MEDS: HYDROmorphone 1 MG/ML, 1ML INJ IVPush PRN ×4 (14:44→15:17)
[2019-12-21] MEDS ORDERED: ACETAMINOPHEN 650 MG/20.3 ML UDC ONE (14:54)
[2019-12-21] MEDS ORDERED: MEPERIDINE/PF 25MG/ML,1ML ONE (15:13)
[2019-12-21] MEDS ORDERED: KETOROLAC 30 MG/1 ML ONE (15:39)
[2019-12-21] MEDS ORDERED: KETOROLAC 30 MG/1 ML IVPush SCH (16:00)
[2019-12-21] MEDS ORDERED: HYDROcodone/APAP 7.5-325MG/15ML UDC PO PRN (19:30)
[2019-12-21] MEDS ORDERED: HYDROmorphone 1 MG/ML, 1ML INJ IM PRN (19:30)
[2019-12-21] MEDS: KETOROLAC 30 MG/1 ML IV SCH (19:30)
[2019-12-21 19:57] VITALS: BP 92/62
[2019-12-22] MEDS: APIXABAN 5 MG TABLET PO SCH ×2 (00:03→08:37)
[2019-12-22] MEDS: GABAPENTIN 400 MG CAPSULE PO SCH ×3 (00:03→14:51)
[2019-12-22 00:09] VITALS: BP 112/72
[2019-12-22 04:31] VITALS: BP 140/87
[2019-12-22] MEDS: OXYcodone 5 MG/5 ML ORAL.SOL UDC PO PRN (04:50)
[2019-12-22] MEDS: KETOROLAC 30 MG/1 ML IV SCH ×2 (05:26→11:42)
[2019-12-22] MEDS: MORPHINE SULFATE 4 MG/ML, 1ML IVPush PRN ×3 (05:26→09:21)
[2019-12-22 05:31] VITALS: BP 129/77
[2019-12-22] MEDS ORDERED: CARVEDILOL 12.5 MG TABLET PO SCH ×2 (06:00→21:00)
[2019-12-22 06:59] VITALS: BP 114/66
[2019-12-22] MEDS ORDERED: SERTRALINE 50MG TABLET PO SCH (09:00)
[2019-12-22] MEDS ORDERED: POLYETHYLENE GLYCOL 17 GM PACKET PO SCH (09:00)
[2019-12-22] MEDS ORDERED: OXYcodone/APAP 10/325MG TABLET PO PRN ×2 (10:30→12:30)
[2019-12-22] MEDS ORDERED: FAMOTIDINE 20 MG TABLET PO PRN ×2 (12:30)
[2019-12-22 12:35] VITALS: BP 115/71
[2019-12-22] MEDS ORDERED: OXYC5CAP2 PO (14:57)
[2019-12-22] MEDS ORDERED: GABAPENTIN 400 MG CAPSULE PO SCH (16:00)
[2019-12-22] MEDS ORDERED: APIXABAN 5 MG TABLET PO SCH (21:00)
[2019-12-22] MEDS ORDERED: ATORVASTATIN 40 MG TABLET PO SCH ×2 (21:00)
[2019-12-23] MEDS ORDERED: SERTRALINE 50MG TABLET PO SCH (09:00)
[2019-12-23] MEDS ORDERED: POLYETHYLENE GLYCOL 17 GM PACKET PO SCH (09:00)
== END 2019-12-22 15:20 | disposition home or self-care (01) ==
LOC: OUT 11:08 → 4NE 18:59 → INTOOBSV 23:21 → 4NE 23:21 → OUT 23:34 → 4NE 12-22 12:41 → DCLOUNGE 12-22 15:15
PROVIDERS: ADMIT Orthopaedic Surgery; ATTEND Orthopaedic Surgery
DX: Z03.818 Encounter for observation for suspected exposure to other biological agents ruled out (principal); S52.551A Other extraarticular fracture of lower end of right radius, initial encounter for closed fracture; G56.01 Carpal tunnel syndrome, right upper limb; I50.9 Heart failure, unspecified; I48.91 Unspecified atrial fibrillation; X58.XXXA Exposure to other specified factors, initial encounter; Y93.89 Activity, other specified; Y92.89 Other specified places as the place of occurrence of the external cause; Z86.73 Personal history of transient ischemic attack (TIA), and cerebral infarction without residual deficits; Z88.0 Allergy status to penicillin
CPT/HCPCS: 25607; 64721; 73100; 76000; 87635; 96374; 96375; 96376; C1713; G0378; J0330; J0690; J1100; J1170; J1885; J2175; J2250; J2270; J2405; J2704; J3010; J7120

== ENCOUNTER 2020-03-31 18:44 | Emergency (ER) | payer MEDICARE ==
[~2020-03-31] VITALS: Ht 167.6 cm; Wt 75.0 kg
[~2020-03-31 18:44] MED LIST changes: +ACET325T26 PO; +ACID1TAB7 PO; +BISA10SU4 PR; +FERR-51 PO; +OXYC5CAP2 PO; +SENN-193 PO
[2020-03-31] MEDS ORDERED: OXYcodone/APAP 5/325MG TABLET ONE (19:18)
[2020-03-31] MEDS ORDERED: LIDOCAINE-MPF 1%, 5ML ONE (19:18)
[2020-03-31] MEDS ORDERED: OXYcodone/APAP 5/325MG TABLET PO ONE (19:30)
[2020-03-31] MEDS ORDERED: LIDOCAINE-MPF 1%, 5ML INFIL ONE (19:30)
--- NOTE | 2020-03-31 19:42 | NUR ---
TASK RN NOTE: AWAITING CT RESULTS.
[2020-03-31] MEDS ORDERED: NEOSPORIN OINT. PKT 1 PACKET ONE (19:54)
--- NOTE | 2020-03-31 21:23 | NUR ---
PATIENT'S MOTHER (MICA) [phone]
--- NOTE | 2020-03-31 21:34 | NUR ---
PT RESTING IN [facility], NO NEEDS AT THIS TIME.
[2020-03-31 21:51] VITALS: BP 120/67
== END 2020-03-31 21:54 | disposition home or self-care (01) ==
LOC: ED 21:46
DX: S01.81XA Laceration without foreign body of other part of head, initial encounter (principal); I10 Essential (primary) hypertension; I25.2 Old myocardial infarction; I95.9 Hypotension, unspecified; Z86.73 Personal history of transient ischemic attack (TIA), and cerebral infarction without residual deficits; W01.0XXA Fall on same level from slipping, tripping and stumbling without subsequent striking against object, initial encounter; Y93.89 Activity, other specified; Y92.098 Other place in other non-institutional residence as the place of occurrence of the external cause; Y99.8 Other external cause status
CPT/HCPCS: 12011; 70450; 70486; 99285